=== PATIENT | male | born 1990 | race Two or more races ===

== ENCOUNTER 2018-06-11 02:13 | Emergency (ER) | payer OTHER ==
[2018-06-11 02:44] LABS: PLATELET COUNT 201 10^3/uL (150-400)
[2018-06-11] MEDS ORDERED: NS 1,000 ML IV ONE (02:44)
[2018-06-11 04:52] LABS: CREATINE KINASE 396 IU/L (0-224)
--- NOTE | 2018-06-11 05:17 | EDPHY ---
H & P Stated Complaint: bilateral upper back pain Source: Patient Exam Limitations: No limitations - Personal History Current Tetanus/Diphtheria Vaccine: Yes Current Tetanus Diphtheria and Acellular Pertussis (TDAP): Yes - Medical/Surgical History Hx Asthma: No Hx Chronic Respiratory Disease: No Hx Diabetes: No Hx Cardiac Disease: No Hx Renal Disease: No Hx Cirrhosis: No Hx Alcoholism: No Hx HIV/AIDS: No Hx Splenectomy or Spleen Trauma: No Other PMH: denies - Social History Smoking Status: Light smoker Time Seen by Provider: 06/11/18 02:25 HPI/ROS: HPI The patient presents with hematuria and upper back pain. 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 He had 1 glass of beer. He has been drinking plenty of fluids throughout the day. He went to use the bathroom and noticed that he had hematuria which was not painful. He then developed back pain which he felt bilaterally into his mid back which was sharp and constant and quite severe. This lasted for about 30 min and improved on its own. He had a 2nd episode of hematuria and decided to come to the emergency department. He has no history of similar. He has a primary care doctor and was told that he has elevated liver tests but is not sure why.. REVIEW OF SYSTEMS 10 systems were reviewed and negative with the exception of the elements mentioned in the history of present illness. PMHx: Healthy Soc Hx: Musician, here with his girlfriend, no drugs, occasional alcohol PHYSICAL General Appearance: Alert, no distress Eyes: Pupils equal and round no pallor or injection ENT, Mouth: Mucous membranes moist Respiratory: There are no retractions, lungs are clear to auscultation Cardiovascular: Regular rate and rhythm Gastrointestinal: Abdomen is soft and non-tender, no masses, bowel sounds normal Back: There is no flank tenderness Neurological: A&O, moves all extremities Skin: Warm and dry, no rashes Musculoskeletal: Neck is supple non tender Extremities: symmetrical, full range of motion Psychiatric: Patient is oriented X 3, there is no agitation (RiguzziIsabella) Constitutional: Initial Vital Signs Temperature (C) 36.7 C 06/11/18 02:18 Heart Rate 88 06/11/18 02:18 Respiratory Rate 18 06/11/18 02:18 Blood Pressure 118/90 H 06/11/18 02:18 O2 Sat (%) 97 06/11/18 02:18 O2 Delivery Mode Room Air Allergies/Adverse Reactions: No Known Allergies Allergy (Unverified 06/11/18 02:17) Home Medications: Medication Instructions Recorded NK [No Known Home Meds] 06/11/18 Medical Decision Making Differential Diagnosis: This is a 28-year-old male who presents with hematuria and subsequent back pain. Here, his vital signs are normal, he does not have any flank tenderness or tenderness at the midline. Patient was given IV fluids. UA was performed which initially showed 3+ blood, however no red blood cells. Labs demonstrated elevated conjugated bilirubin, otherwise unremarkable. CK was slightly elevated though not concerning for rhabdo. He underwent an ultrasound of his kidneys which demonstrated no hydronephrosis suggestive of ureterolithiasis as cause of his symptoms. I suspect elevated bilirubin level could be related to [place]. He has no abdominal tenderness to suggest biliary colic. He does not have any risk factors for hepatitis. He reports that he previously had elevated liver testing. I have encouraged him to seek follow-up with his primary care doctor within the next few days. He is happy with this plan. (Isabella Pichardo) Other Provider: 0800 I received a call from Dr. Hernandez, radiologist over reading the ultrasound. 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 This is however unlikely he believes given the normal urinalysis and normal renal function. The patient has been referred to primary care as an outpatient. He will be important for him to follow-up if his symptoms persist. (Cristo Cantor) - Data Points Laboratory Results: Laboratory Results 06/11/18 02:30 06/11/18 02:30 Medications Given: Discontinued Medications Sodium Chloride (Ns) 1,000 mls @ 0 mls/hr IV EDNOW ONE; Wide Open PRN Reason: Protocol Stop: 06/11/18 02:45 Last Admin: 06/11/18 02:47 Dose: 1,000 mls Departure - Departure Disposition: Home, Routine, Self-Care Clinical Impression: Back pain Condition: Good Instructions: Back Pain (ED) Additional Instructions: Please make sure to continue to drink plenty of fluids. You should return to the ER if you are worse in any way. Referrals: Savage Holland MD [Medical Doctor] - As per Instructions
[2018-06-11 05:28] VITALS: BP 128/72
== END 2018-06-11 05:28 | disposition home or self-care (01) ==
DX: M54.6 Pain in thoracic spine (principal); R31.9 Hematuria, unspecified; E86.9 Volume depletion, unspecified